=== PATIENT | male | born 1955 | race Hispanic/Latino ===

== ENCOUNTER 2016-10-11 06:51 | Day surgery (SDC) | payer BC ==
[~2016-10-11 06:51] MED LIST: NACL 0.9% 1000 ML 1,000 ML IV SCH
[2016-10-11 07:55] LABS: Basophils % (Auto) 0.5 % (0.0-1.8); Eosinophils % (Auto) 1.8 % (0.0-4.3); Hematocrit 48.5 % (35.5-45.6); Hemoglobin 16.9 gm/dl (11.8-15.2); Mean Corpuscular HGB Conc 35 % (32-34); Mean Corpuscular Hemoglobin 32 pg (28-32); Mean Corpuscular Volume 93 fl (84-94); Platelet Count 168 K/mm3 (140-440); Red Cell Distribution Width 13.3 % (13.2-15.2); White Blood Count 8.5 K/mm3 (4.5-11.0)
--- NOTE | 2016-10-11 08:04 | Cat Scan Report ---
CT OF THE ABDOMEN AND PELVIS WITHOUT CONTRAST HISTORY: Nephrolithiasis, flank pain. TECHNIQUE: Helical CT without contrast. Sagittal and coronal reformatted images. FINDINGS: This exam was done in the prone position for planning for nephrostomy tube placement. A 1.5 cm calcified stone is identified at the right ureteral pelvic junction. There is moderate to severe pyelocaliectasis in the right kidney. There are a few additional tiny, punctate calyceal stones in the inferior right kidney. The remainder of the right ureter is normal course and caliber. A 2.8 x 0.8 cm staghorn calculus is identified in the mid to inferior left renal sinus. There are also 2 calyceal stones at the inferior pole of the left kidney measuring 5 and 7 mm. The left ureter is normal course and caliber. The bladder is empty but grossly unremarkable. Normal prostate. The unenhanced CT appearance of the liver, biliary system, pancreas, spleen, adrenal glands, bowel loops and appendix are within normal limits. No evidence for ascites, acute inflammation or adenopathy. The aorta is normal caliber. There are moderate to severe degenerative changes at L5-S1. The bony structures are within normal limits otherwise. The visualized lung bases are clear. Normal heart size. IMPRESSION: Bilateral nephrolithiasis. 1.5 cm stone at the right ureteropelvic junction with moderate to severe pelvocaliectasis in the right kidney.
[2016-10-11 08:06] LABS: INR 1.03 (0.87-1.13)
[2016-10-11 08:07] LABS: Partial Thromboplastin Time 24.9 Sec. (24.2-36.6)
[2016-10-11] MEDS ORDERED: NACL 0.9% 500 ML IR ONE (08:23)
[2016-10-11] MEDS ORDERED: XYLOCAINE 1%/ EPI 1:100,000 INFILTRATI ONE (08:24)
[2016-10-11] MEDS ORDERED: NACL 0.9% 500 ML 500 ML IV SCH (08:30)
[2016-10-11] MEDS ORDERED: BENADRYL ONE (08:38)
[2016-10-11] MEDS: VANCOMYCIN/NS 1 GM/250 ML 1 GM/250 ML BAG IV NR ×2 (09:15→10:35)
[2016-10-11] MEDS ORDERED: NACL 0.9% 500 ML 500 ML ONE (10:21)
[2016-10-11] MEDS: VERSED ONE ×5 (10:46→11:09)
[2016-10-11] MEDS: SUBLIMAZE ONE ×4 (10:46→11:03)
[2016-10-11] MEDS ORDERED: VERSED ONE (10:58)
--- NOTE | 2016-10-11 11:30 | Short Stay Summary ---
Short Stay Documentation Date of service: 10/11/16 Narrative H&P: 61-year-old male with past medical history of kidney stones who presents with right-sided hydronephrosis referred by 's initials for nephrostomy tube placement, with later conversion to utter pigtail catheter for PCNL. - History Principal diagnosis: Hydronephrosis H&P: obtained from office Past Medical History: other (kidney stones with PCNL) Past Surgical History: Other (PCN and prior PCNL) - Allergies and Medications Current Medications: Allergies ciprofloxacin [From Cipro] Allergy (Intermediate, Verified 09/09/13 09:51) Itching ciprofloxacin HCl [From Cipro] Allergy (Intermediate, Verified 09/09/13 09:51) Itching Penicillins Allergy (Intermediate, Verified 09/09/13 09:23) Hives SEAFOOD Allergy (Mild, Uncoded 09/09/13 09:23) Vomiting Home Medications Medication Instructions Recorded Confirmed Last Taken Type Nitrofurantoin Monohyd/M-Cryst 100 mg PO DAILY 10/11/16 10/11/16 10/10/16 History [Nitrofurantoin Power-Mcr 100 mg] Active Medications Vancomycin HCl (Vancomycin/Ns 1 Gm/250 Ml) 1 gm in 250 mls @ 166.667 mls/hr IV PREOP NR PRN Reason: Protocol Stop: 10/11/16 23:59 Last Admin: 10/11/16 10:35 Dose: 166.667 mls/hr Sodium Chloride (Nacl 0.9% 500 Ml) 500 mls @ 50 mls/hr IV DIRECT ALVARO Last Admin: 10/11/16 08:00 Dose: 50 mls/hr - Physical exam General appearance: no acute distress Lungs: Normal air movement Gastrointestinal: costovertebral (right flank) - Brief post op/procedure progress note Date of procedure: 10/11/16 Pre-op diagnosis: hydronephrosis Post-op diagnosis: same Procedure: right pcn Anesthesia: local Surgeon: LULI CORRAL Estimated blood loss: minimal Condition: stable - Hospital course Hospital course: Will be monitored for 3 hrs. If no issues, can be discharged. - Disposition Condition at discharge: Stable Disposition: DISCHARGED TO HOME OR SELFCARE - Discharge Diagnoses (1) Hydronephrosis Status: Acute Qualifiers: Hydronephrosis type: H (2) Kidney calculi Status: Chronic Short Stay Discharge Plan Activity: advance as tolerated Weight Bearing Status: Weight Bear as Tolerated Diet: regular Wound: keep clean and dry
[2016-10-11 11:42] LABS: BUN/Creatinine Ratio 10.62; Calcium 8.9 mg/dL (8.4-10.2); Chloride 105.7 mmol/L (98-107); Potassium 3.8 mmol/L (3.6-5.0)
[2016-10-11 11:47] LABS: Bilirubin,Urine NEG (Negative); Blood,Urine LG (Negative); Ketones,Urine NEG (Negative); Leukocyte Esterase,Urine SM (Negative); Nitrite,Urine NEG (Negative); Urobilinogen,Urine < 2.0 mg/dL (<2.0)
[2016-10-11 11:51] LABS: RBC,Urine > 182.0 /HPF (0.0-6.0)
--- NOTE | 2016-10-11 11:54 | Operative Report ---
Operative Report Operative Report: EXAM: 1. Ultrasound and fluoroscopic guided access of the lower pole posterior calyx of the right kidney 2. Diagnostic injection of the right kidney through the access needle 3. Nephrostogram of the right kidney 4. Percutaneous nephrostomy tube placement of the right kidney DATE: 10/11/16 WEB SIZER: LULI CORRAL MD INDICATION: 61-year-old male with bilateral renal calculi with right-sided hydronephrosis and flank pain set up for right-sided nephrostomy tube, and subsequent later conversion to nephroureteral tube for PCNL. MEDICATIONS: Please see nursing report for full details. DEVICES: 8 Comoran nephrostomy tube CONTRAST: 15 mL of nonionic contrast PROCEDURE: The risks, benefits, and alternatives were discussed with the patient; written informed consent was obtained. The patient's back was prepped and draped in a sterile fashion. The patient's puncture site was anesthetized with lidocaine. Under direct ultrasound guidance , the right lower pole posterior calyx was accessed with a 20-gauge needle. Urine was aspirated. Contrast was injected demonstrating a right-sided posterior calyx emptying into the hydronephrotic right-sided collecting system. 0.018 inch wire was passed into the collecting system. Needle was exchanged for a 6 [place]an Accu stick system. 6 [place]an Accustick system was advanced over the wire and passed into the collecting system. Wire, inner dilator and cannula were removed. Contrast was injected confirming position within the collecting system. Nephrostogram was performed demonstrating moderate to severe right-sided hydronephrosis with no passage of contrast into the right ureter. There is a large ball like renal calculi. 4 Comoran vertebral catheters then passed through the 6 Comoran transitional dilator and passed into the bladder. 0.035 inch Amplatz wire was advanced through the vertebral catheter into the bladder. Transitional dilator removed. 8 Comoran dilator advanced over the wire and removed. 8 Comoran nephrostomy tube was advanced over the wire. Wire was removed. Ullin loop was performed in the renal pelvis. Contrast was injected into the nephrostomy tube confirming position within the collecting system. Contrast was aspirated. The nephrostomy tube was sutured in place with Ethilon. Sterile dressing applied. Patient tolerated the procedure well. The patient was transferred to the recovery area without issue. FINDINGS: Please see procedure note above. IMPRESSION: 1. Successful nephrostogram of the right kidney demonstrating moderate to severe hydronephrosis with a large ball like renal calculi with no passage of contrast into the ureter. 2. Successful fluoroscopic and sonographic guided percutaneous nephrostomy tube placement in the lower posterior calyx of the right kidney. 3. Urine sent for culture and urinalysis.
[2016-10-11 13:36] VITALS: BP 121/65
== END 2016-10-11 14:10 | disposition home or self-care (01) ==
LOC: OPU 06:51
PROVIDERS: ATTEND Radiology Diagnostic Radiology
DX: N13.2 Hydronephrosis with renal and ureteral calculous obstruction (principal)
CPT/HCPCS: 36415; 50432; 74176; 80048; 81001; 85025; 85610; 85730; 87086; C1729; C1751; C1769; J1200; J2250; J2930; J3010; J3370; J7040; Q9967

== ENCOUNTER 2016-10-28 06:36 | Observation (INO) | payer BC ==
[~2016-10-28 06:36] MED LIST changes: +VANCOMYCIN/NS 1 GM/250 ML 1 GM/250 ML BAG IV NR
[2016-10-28] MEDS ORDERED: XYLOCAINE MPF 2% ONE (07:02)
[2016-10-28] MEDS ORDERED: DIPRIVAN 10 MG/ML IV ONE (07:02)
[2016-10-28] MEDS ORDERED: SUBLIMAZE ONE ×2 (07:02→08:23)
--- NOTE | 2016-10-28 08:00 | Anesthesia Consultation ---
Anesthesia Consult and Med Hx Date of service: 10/28/16 - Airway Anesthetic Teeth Evaluation: Good ROM Head & Neck: Adequate Mental/Hyoid Distance: Adequate Mallampati Class: Class III Intubation Access Assessment: Possibly Difficult - Pre-Operative Health Status ASA Pre-Surgery Classification: ASA3 - Pulmonary Hx Smoking: Yes (1 PACK PER 2 WEEKS) Hx Respiratory Symptoms: No SOB: No (denies) Hx Pneumonia: Yes Hx Sleep Apnea: No (HARISH PRE SCREEN HIGH RISK) - Cardiovascular System Hx Hypertension: Yes (OFF MEDS X 2 YRS) Hx Coronary Artery Disease: No (patient says "blood clot to heart and lungs" 15 yrs ago; no problems since) Hx Heart Attack/AMI: No (left bundle branch block on ECG) Hx Angina: No (denies) Hx Cardia Arrhythmia: No Hx Peripheral Vascular Disease: Yes (DVT with PE in 2001) - Central Nervous System Hx Neuromuscular Disorder: No Hx Seizures: No CVA: No Hx Back Pain: No Hx Psychiatric Problems: Yes (Depression/anxiety) - Gastrointestinal Hx Gastroesophageal Reflux Disease: Yes - Endocrine Hx Renal Disease: Yes (Kidney Stones; last visit 11/15/13) Hx Insulin Dependent Diabetes: No Hx Non-Insulin Dependent Diabetes: No Hx Thyroid Disease: No - Other Systems Hx Alcohol Use: Yes (2-3 BEERS PER DAY) Hx Substance Use: No Hx Cancer: No Hx Obesity: No
--- NOTE | 2016-10-28 08:10 | Anesthesia Day of Surgery ---
Anesthesia Day of Surgery - Day of Surgery Patient Examined: Yes Patient H&P Reviewed: Yes Patient is NPO: Yes
[2016-10-28] MEDS ORDERED: PEPCID IV NR (08:11)
[2016-10-28] MEDS ORDERED: NACL 0.9% 500 ML IR ONE (08:22)
[2016-10-28] MEDS ORDERED: VERSED ONE (08:22)
[2016-10-28] MEDS ORDERED: XYLOCAINE 1%/ EPI 1:100,000 INFILTRATI ONE (08:23)
[2016-10-28] MEDS ORDERED: VANCOMYCIN/NS 1 GM/250 ML 1 GM/250 ML BAG IV ONE (08:23)
[2016-10-28] MEDS ORDERED: ANCEF/STERILE WATER 2 GM/20 ML 2 GM/20 ML SYRINGE IV NR ×2 (09:00)
[2016-10-28] MEDS ORDERED: ZEMURON IV ONE (09:03)
[2016-10-28] MEDS ORDERED: DECADRON ONE (09:06)
[2016-10-28] MEDS ORDERED: ZOFRAN ONE ×3 (09:07→10:46)
[2016-10-28] MEDS ORDERED: DILAUDID ONE (09:31)
--- NOTE | 2016-10-28 09:32 | Operative Report ---
Operative Report Operative Report: EXAM: FLUOROSCOPIC GUIDED NEPHROSTOGRAM, EXCHANGE OF NEPHROSTOMY TUBE TO NEPHROURETERAL STENT CLINICAL INDICATION: PATIENT WITH HYDRONEPHROSIS AND OBSTRUCTING STONE DATE: 10/28/2016 PROCEDURE: Following an explanation of the risks, benefits and alternatives; written informed consent was obtained. The patient was brought to the injury graphic suite and placed in prone position on the examination table. His right back and indwelling ostomy tube were prepped and draped in the usual sterile fashion. 1% lidocaine was used for anesthesia. Contrast was injected through the indwelling nephrostomy tube which demonstrated minimal to moderate hydronephrosis. The obstructing renal stone is easily identifiable. The suture was cut. The catheter was cut and a 0.035 guidewire advanced through the catheter to the proximal ureter. The remaining catheter was then removed intact. A 4 Panamanian vertebral catheter was then advanced over the guidewire and together the guidewire and catheter were advanced to the bladder. The vertebral catheter was removed. A 5 Panamanian pigtail catheter was then placed over the guidewire and advanced to the bladder. The guidewire was removed. Contrast was injected through the pigtail catheter to document appropriate positioning within the bladder a. The catheter was securely fasten the skin surface using 2-0 Ethilon suture and a sterile dressing applied. The patient tolerated the procedure well. There were no immediate post procedure complications. Conscious sedation was performed under the guidance of radiologic nursing. Continuous cardiopulmonary monitoring was utilized. IMPRESSION: 1) Fluoroscopic guided nephrostogram demonstrating minimal to moderate hydronephrosis and an obstructing renal pelvic stone. 2) Fluoroscopic guided exchange of nephrostomy tube to a nephroureteral stent.
[2016-10-28] MEDS ORDERED: MINERAL OIL TOPICAL LIGHT TP ONE ×2 (09:48→10:00)
[2016-10-28] MEDS ORDERED: NACL 0.9% IR ONE (10:00)
[2016-10-28] MEDS ORDERED: ePHEDrine SULFATE ONE (10:27)
[2016-10-28] MEDS ORDERED: NEOSTIGMINE ONE (11:17)
[2016-10-28] MEDS ORDERED: ROBINUL ONE ×2 (11:17→11:33)
[2016-10-28] MEDS ORDERED: NACL 0.9% 500 ML 500 ML IV ONE (11:24)
[2016-10-28] MEDS ORDERED: LASIX ONE (11:24)
[2016-10-28] MEDS ORDERED: NORCO 5/325 PO PRN (12:37)
[2016-10-28] MEDS ORDERED: MORPHINE IV PRN (12:37)
[2016-10-28] MEDS ORDERED: TYLENOL PO PRN (12:37)
[2016-10-28] MEDS ORDERED: ZOFRAN IV PRN (12:37)
--- NOTE | 2016-10-28 12:37 | Post Operative Note ---
Date of procedure: 10/28/16 Pre-op diagnosis: r renal stone Post-op diagnosis: same Findings: huge stone Procedure: r perc nephrolithotomy Anesthesia: GETA Surgeon: MIKIE QUINONEZ Estimated blood loss: 50-100ml Pathology: list (stones) Specimen disposition: given to patient/family Condition: stable Disposition: PACU
[2016-10-28] MEDS ORDERED: D5W/0.45% NACL/KCL 20 MEQ 20 MEQ/1,000 ML BAG IV SCH (13:00)
--- NOTE | 2016-10-28 13:24 | Operative Report ---
PREOPERATIVE DIAGNOSIS: Very large 2.5 to 3 cm right renal stone. POSTOPERATIVE DIAGNOSES: Very large 2.5 to 3 cm right renal stone. PROCEDURE: Right percutaneous nephrolithotomy, lithotripsy with and LithoClast and ultrasonic lithotripsy, insertion of nephrostomy tube. SURGEON: Cash Alegria M.D. ANESTHESIA: General. FINDINGS: This is a gentleman with a very large right renal stone, now presents for treatment. All risks and complications were discussed. DESCRIPTION OF PROCEDURE: The patient was brought to the operating room and placed on the operating table. Following induction of anesthesia, placed in lithotomy position, prepped and draped in usual sterile fashion. The nephroureteral stent was accessed and an Amplatz wire coiled in the bladder. An incision was made along the wire and this was dilated with a hemostat. We placed the snake and a safety wire coiled in the bladder and was secured with silk. We could not get a 14-Montenegrin Amplatz over the snake, it was too tight at the level of fascia. We then used a 12 and gradually dilated to 18-Montenegrin. We then used a 30 cm balloon, but it was too tight to get the sheath over the balloon. We took the balloon out and used a bigger Amplatz to 30-Montenegrin and then placed a 28 sheath. Flexible nephroscopy revealed the stone. A rigid scope was placed and using the LithoClast and ultrasonic device, this was broken into many pieces, which were extracted. These were given to the family. The patient tolerated the procedure well. No significant complications. A 22 Councill catheter was placed. There was no extravasation, but the dye did not go freely even though there was a wire into renal pelvis, likely because of the edema from the stone that has been there for quite some time. The patient tolerated the procedure well and brought to recovery room with the wire in the bladder, a Villavicencio catheter and a nephrostomy tube. Minimal blood loss in stable condition. JOB# [id number] RITCHIE/JOSEFINA
[2016-10-28 13:57] LABS: Basophils % (Auto) 0.5 % (0.0-1.8); Eosinophils % (Auto) 0.8 % (0.0-4.3); Hematocrit 48.9 % (35.5-45.6); Hemoglobin 16.7 gm/dl (11.8-15.2); Mean Corpuscular HGB Conc 34 % (32-34); Mean Corpuscular Hemoglobin 32 pg (28-32); Mean Corpuscular Volume 94 fl (84-94); Platelet Count 134 K/mm3 (140-440); Red Blood Count 5.22 M/mm3 (3.65-5.03); Red Cell Distribution Width 13.7 % (13.2-15.2); White Blood Count 7.4 K/mm3 (4.5-11.0)
[2016-10-28] MEDS ORDERED: NACL 0.9% 1000 ML 1,000 ML ONE (14:05)
[2016-10-28 14:10] LABS: Anion Gap 15 mmol/L; Blood Urea Nitrogen 9 mg/dL (9-20); Calcium 8.2 mg/dL (8.4-10.2); Carbon Dioxide 26 mmol/L (22-30); Chloride 105.6 mmol/L (98-107); Glucose 127 mg/dL (75-100); Potassium 4.8 mmol/L (3.6-5.0); Sodium 142 mmol/L (137-145)
--- NOTE | 2016-10-28 14:11 | Admit Criteria Form ---
Admission Criteria Documentation: RENAL COLIC AND KIDNEY STONES Clinical Indications for Admission to Inpatient Care ( Place 'X' for any and all applicable criteria): Admission is indicated for ANY ONE of the following (1)(2)(3)(4): [X]I. Inpatient admission required rather than observation care (Also use Renal Colic and Kidney Stones: Observation Care Criteria as appropriate) because of ANY ONE of the following: [ ]a) Severe pain requiring acute inpatient management [ ]b) Urinary tract infection identified [ ]c) Vomiting that is severe or persistent [ ]d) IV fluid required rather than oral rehydration to replace significant ongoing (eg, for greater than 24 hours) losses (greater than 200 mL/hr or 3 L/m2 per day) [X]e) Percutaneous or open drainage (eg, abscess, biliary tract) procedures [ ]f) Other condition, treatment or monitoring requiring inpatient admission [ ]II. Impending acute renal failure [ ]III. Bilateral obstruction [ ]IV. Single kidney with obstruction [ ]V. Transplanted kidney with obstruction [ ]. Possible open surgical procedure needed (eg, pyonephrosis, stone removal not amendable to other means) [ ]VII. Hemodynamic instability Extended stay beyond goal length of stay may be needed for(2)(3)(31): [ ]a) Failed initial stone removal (32) [ ]b) Pyonephrosis [ ]c) Obstructive uropathy with urinary tract infection [ ]d) Procedure complications [ ]e) Comorbidities (22) The original [employer] [facility] [facility] content created by [employer] has been revised. The portions of the content which have been revised are identified through the use of italic text or in bold, and [id number] has neither reviewed nor approved the modified material. All other unmodified content is copyright [employer]. Please see references footnoted in the original [employer] [facility] edition 2016 Admission Criteria Met: Yes
--- NOTE | 2016-10-28 15:26 | Fluoroscopy Report ---
Findings: History of calculus of right kidney is given. 10 fluoroscopic images were captured. Tool Grinding Technician film of the abdomen demonstrates a rather large stone in the expected position of the right renal pelvis. Subsequent images demonstrate removal of the stone. Balloon dilatation was also performed on the right side. Please correlate with the procedural report by Dr. Alegria.
--- NOTE | 2016-10-28 15:26 | Fluoroscopy Report ---
Findings: History of calculus of right kidney is given. 10 fluoroscopic images were captured. Shake Maker film of the abdomen demonstrates a rather large stone in the expected position of the right renal pelvis. Subsequent images demonstrate removal of the stone. Balloon dilatation was also performed on the right side. Please correlate with the procedural report by Dr. Alegria.
--- NOTE | 2016-10-28 16:47 | Progress Note ---
Assessment and Plan labs noted home in am Subjective Date of service: 10/28/16 Principal diagnosis: stones Objective - Constitutional Vitals: Vital Signs - 12hr 10/28/16 10/28/16 10/28/16 07:06 07:36 07:52 Temperature 97.9 F 97.9 F Pulse Rate Pulse Rate [ 62 62 62 From Monitor] Respiratory 16 16 Rate Blood Pressure Blood Pressure 112/71 112/71 [Left Arm] O2 Sat by Pulse 97 97 Oximetry 10/28/16 10/28/16 10/28/16 07:54 11:51 11:55 Temperature 95.5 F L Pulse Rate 72 60 Pulse Rate [ From Monitor] Respiratory 16 14 14 Rate Blood Pressure 130/52 133/45 Blood Pressure [Left Arm] O2 Sat by Pulse 97 99 100 Oximetry 10/28/16 10/28/16 10/28/16 12:00 12:05 12:20 Temperature 96.2 F L Pulse Rate 55 L 55 L 70 Pulse Rate [ From Monitor] Respiratory 15 15 16 Rate Blood Pressure 129/69 131/66 122/60 Blood Pressure [Left Arm] O2 Sat by Pulse 100 100 100 Oximetry 10/28/16 10/28/16 10/28/16 12:35 12:50 13:05 Temperature 96.9 F L 96.7 F L 97.0 F L Pulse Rate 59 L 59 L 59 L Pulse Rate [ From Monitor] Respiratory 15 14 15 Rate Blood Pressure 128/58 118/62 122/60 Blood Pressure [Left Arm] O2 Sat by Pulse 99 97 96 Oximetry 10/28/16 10/28/16 10/28/16 13:20 13:35 13:50 Temperature 97.2 F L 97.9 F 98.5 F Pulse Rate 58 L 61 69 Pulse Rate [ From Monitor] Respiratory 14 15 16 Rate Blood Pressure 122/70 132/75 124/73 Blood Pressure [Left Arm] O2 Sat by Pulse 95 95 94 Oximetry 10/28/16 15:06 Temperature 98.8 F Pulse Rate Pulse Rate [ 56 L From Monitor] Respiratory 18 Rate Blood Pressure Blood Pressure 128/68 [Left Arm] O2 Sat by Pulse 97 Oximetry General appearance: Present: no acute distress - Labs CBC & Chem 7: 10/28/16 13:20 10/28/16 13:20 Labs: Abnormal lab results 10/28/16 10/28/16 10/28/16 Range/Units 07:09 13:20 13:20 RBC 5.22 H (3.65-5.03) M/mm3 Hgb 16.7 H (11.8-15.2) gm/dl Hct 48.9 H (35.5-45.6) % Plt Count 134 L (140-440) K/mm3 Lymph % (Auto) 9.7 L (13.4-35.0) % Lymph # 0.7 L (1.2-5.4) K/mm3 Seg Neutrophils % 86.8 H (40.0-70.0) % Glucose 127 H (75-100) mg/dL Calcium 8.2 L (8.4-10.2) mg/dL Crossmatch See Detail
[2016-10-28] MEDS ORDERED: VANCOMYCIN/NS 1 GM/250 ML 1 GM/250 ML BAG IV SCH (20:00)
[2016-10-28] MEDS ORDERED: PEPCID IV SCH (22:00)
[2016-10-29 07:48] VITALS: BP 130/78
--- NOTE | 2016-10-29 09:02 | Short Stay Summary ---
Short Stay Documentation Date of service: 10/29/16 - History H&P: obtained from office - Allergies and Medications Current Medications: Allergies ciprofloxacin [From Cipro] Allergy (Intermediate, Verified 09/09/13 09:51) Itching ciprofloxacin HCl [From Cipro] Allergy (Intermediate, Verified 09/09/13 09:51) Itching Penicillins Allergy (Intermediate, Verified 09/09/13 09:23) Hives SEAFOOD Allergy (Mild, Uncoded 09/09/13 09:23) Vomiting Home Medications Medication Instructions Recorded Confirmed Last Taken Type Nitrofurantoin Monohyd/M-Cryst 100 mg PO DAILY 10/11/16 10/28/16 10/27/16 History [Nitrofurantoin [place]-Mcr 100 mg] Aspirin [Adult Low Dose Aspirin EC] 81 mg PO DAILY 10/15/16 10/28/16 10/07/16 History Active Medications Acetaminophen (Tylenol) 650 mg PO Q4H PRN PRN Reason: Pain MILD(1-3)/Fever >100.5/ARANA Acetaminophen/Hydrocodone Bitart ([place] 5/325) 2 each PO Q6H PRN PRN Reason: Pain, Moderate (4-6) Famotidine (Pepcid) 20 mg IV BID [facility] Last Admin: 10/28/16 21:27 Dose: 20 mg Sodium Chloride (Nacl 0.9% 1000 Ml) 1,000 mls @ 42 mls/hr IV DIRECT ALVARO Last Admin: 10/28/16 07:30 Dose: 42 mls/hr Potassium Chloride/Dextrose/Sod Cl (D5w/0.45% Nacl/Kcl 20 Meq) 20 meq in 1,000 mls @ 125 mls/hr IV DIRECT ALVARO Last Admin: 10/28/16 21:20 Dose: 125 mls/hr Morphine Sulfate (Morphine) 2 mg IV Q4H PRN PRN Reason: Pain, Moderate (4-6) Ondansetron HCl (Zofran) 4 mg IV Q8H PRN PRN Reason: N/V unrelieved by Reglan - Brief post op/procedure progress note Date of procedure: 10/28/16 Pre-op diagnosis: kidney stone Post-op diagnosis: same Procedure: perc nephrolithomy Surgeon: MIKIE QUINONEZ Estimated blood loss: minimal Condition: stable - Hospital course Hospital course: wire & gruber removed home with perc tube - norco & cipro - Disposition Condition at discharge: Stable Disposition: DISCHARGED TO HOME OR SELFCARE Short Stay Discharge Plan Follow up with: PRIMARY CARE, [Primary Care Provider] - 7 Days
== END 2016-10-29 11:00 | disposition home or self-care (01) ==
LOC: OPU 06:36 → 2B-SURG 12:37
PROVIDERS: ADMIT Urology; ATTEND Urology
DX: N20.0 Calculus of kidney (principal)
CPT/HCPCS: 36415; 50081; 50431; 50434; 74485; 80048; 85025; 86850; 86900; 86901; 86920; 93005; 93010; 96365; 96366; 96375; 96376; A4217; C1726; C1751; C1769; G0378; J1100; J1170; J1940; J2250; J2405; J2704; J2710; J3010; J3370; J7030; Q9967; 96374

== ENCOUNTER 2017-06-26 06:34 | Day surgery (SDC) | payer BC ==
[2017-06-26 07:26] LABS: Basophils % (Auto) 0.7 % (0.0-1.8); Eosinophils % (Auto) 2.4 % (0.0-4.3); Hematocrit 49.1 % (35.5-45.6); Hemoglobin 17.3 gm/dl (11.8-15.2); Mean Corpuscular HGB Conc 35 % (32-34); Mean Corpuscular Hemoglobin 33 pg (28-32); Mean Corpuscular Volume 94 fl (84-94); Platelet Count 140 K/mm3 (140-440); Red Blood Count 5.21 M/mm3 (3.65-5.03); Red Cell Distribution Width 13.4 % (13.2-15.2); White Blood Count 6.6 K/mm3 (4.5-11.0)
[2017-06-26 07:36] LABS: Anion Gap 16 mmol/L; BUN/Creatinine Ratio 13; Blood Urea Nitrogen 13 mg/dL (9-20); Calcium 8.5 mg/dL (8.4-10.2); Carbon Dioxide 24 mmol/L (22-30); Chloride 103.5 mmol/L (98-107); Glucose 120 mg/dL (75-100); Potassium 3.5 mmol/L (3.6-5.0); Sodium 140 mmol/L (137-145)
[2017-06-26 07:37] LABS: INR 0.96 (0.87-1.13)
[2017-06-26 07:38] LABS: Partial Thromboplastin Time 24.7 Sec. (24.2-36.6)
--- NOTE | 2017-06-26 08:03 | Cat Scan Report ---
CT ABDOMEN PELVIS WITHOUT CONTRAST: HISTORY: Renal stones, flank pain. COMPARISON: 10/11/16. TECHNIQUE: Helical CT in 1.25mm intervals without IV contrast. Sagittal and coronal reconstructions. FINDINGS: Lung bases: Adequately aerated. No infiltrate, mass or effusion. Liver: Normal. Biliary system: Normal. Pancreas: Normal. Spleen: Normal. Kidneys/ureters/bladder: The right kidney and collecting system are within normal limits. The obstructing stone near the right ureteropelvic junction has been removed since 10/11/16. No right ureteral stones or hydronephrosis. There are 3 moderate to large stones in the left kidney which are essentially unchanged. The largest stone resides at mid pole measuring 4.1 x 1.5 cm in axial plane. There are 2 stones at the inferior pole of the left kidney measuring 9 mm and 10 mm. There is no evidence for ureteral stones or hydronephrosis. The bladder is empty and grossly normal. The prostate gland is normal size. Adrenal glands: Normal. Aorta: Normal. Intestines: Normal. Appendix: Normal. Ascites: None. Adenopathy: None. Musculoskeletal: Mild degenerative changes in the visualized thoracolumbar spine. No fracture or suspicious bony lesion. IMPRESSION: Left nephrolithiasis as outlined above.
[2017-06-26] MEDS ORDERED: VERSED ONE (08:07)
[2017-06-26] MEDS ORDERED: NACL 0.9% 500 ML IR ONE (08:07)
[2017-06-26] MEDS ORDERED: ANCEF/STERILE WATER 2 GM/20 ML 0 GM/0 ML SYRINGE IV ONE (08:08)
[2017-06-26] MEDS ORDERED: LEVAQUIN 500MG/100ML 500 MG/100 ML BAG IV ONE (08:21)
[2017-06-26] MEDS: SUBLIMAZE ONE ×2 (09:16→09:23)
[2017-06-26] MEDS: XYLOCAINE 2% INFILTRATI ONE ×2 (09:18→09:31)
[2017-06-26] MEDS ORDERED: SUBLIMAZE ONE (09:26)
--- NOTE | 2017-06-26 10:04 | Short Stay Summary ---
Short Stay Documentation Date of service: 06/26/17 Narrative H&P: 52-year-old male who presents with kidney stones, status post multiple percutaneous nephrolithotomies, who presents for left-sided kidney stone access. - History Principal diagnosis: kidney stones Past Medical History: other (kidney stones) Past Surgical History: Other (kidney stone procedures) - Allergies and Medications Current Medications: Allergies ciprofloxacin [From Cipro] Allergy (Intermediate, Verified 09/09/13 09:51) Itching ciprofloxacin HCl [From Cipro] Allergy (Intermediate, Verified 09/09/13 09:51) Itching Penicillins Allergy (Intermediate, Verified 09/09/13 09:23) Hives SEAFOOD Allergy (Mild, Uncoded 09/09/13 09:23) Vomiting Home Medications Medication Instructions Recorded Confirmed Last Taken Type Aspirin [Adult Low Dose Aspirin EC] 81 mg PO DAILY 10/15/16 06/26/17 1 Month Ago History ~05/27/17 Hydrochlorothiazide [HCTZ] 25 mg PO DAILY 06/26/17 06/26/17 06/25/17 History Levofloxacin [Levaquin TAB] 750 mg PO QDAY 7 Days #7 tablet 06/26/17 Unknown Rx Potassium Citrate [Potassium 15 meq PO DAILY 06/26/17 06/26/17 06/25/17 History Citrate ER] Active Medications Sodium Chloride (Nacl 0.9% 1000 Ml) 1,000 mls @ 42 mls/hr IV DIRECT ALVARO Last Admin: 06/26/17 08:24 Dose: 42 mls/hr Vancomycin HCl (Vancomycin/Ns 1 Gm/250 Ml) 1 gm in 250 mls @ 166.667 mls/hr IV PREOP NR PRN Reason: Protocol Stop: 06/26/17 23:59 Last Admin: 06/26/17 09:15 Dose: 250 mls - Physical exam General appearance: no acute distress Lungs: Normal air movement - Brief post op/procedure progress note Date of procedure: 06/26/17 Pre-op diagnosis: Renal stones Post-op diagnosis: same Procedure: Left-sided nephroureteral tube placement Anesthesia: local (w/ conscious sedation) Surgeon: LULI CORRAL Estimated blood loss: minimal Condition: stable - Hospital course Hospital course: Tolerated procedure well. No issues. - Disposition Condition at discharge: Stable Disposition: DC-01 TO HOME OR SELFCARE Short Stay Discharge Plan Activity: advance as tolerated Weight Bearing Status: Weight Bear as Tolerated Diet: advance as tolerated Wound: keep clean and dry (do not get wet. Keep dry until surgery on FRI. Take antibiotics daily to prevent infection.) Follow up with: MIKIE QUINONEZ MD [Primary Care Provider] - 7 Days Prescriptions: Levofloxacin [Levaquin TAB] 750 mg PO QDAY 7 Days #7 tablet
--- NOTE | 2017-06-26 10:19 | Operative Report ---
Operative Report Operative Report: EXAM: 1. Ultrasound and fluoroscopic guided access of the lower posterior calyx of the left kidney 2. Nephrostogram of the left kidney 3. Fluoroscopic guided percutaneous nephroureteral tube placement in the left kidney DATE: 06/26/17 CAKE PRESS OPERATOR HELPER: LULI CORRAL MD INDICATION: Large left-sided renal stone requiring access for percutaneous nephrolithotomy MEDICATIONS: Please see nursing report for full details. DEVICES: 5 Greenlandic pigtail catheter CONTRAST: Please see crime lab analyst report for full details. PROCEDURE: The risks, benefits, and alternatives were discussed with the patient; written informed consent was obtained. The patient's back was prepped and draped in a sterile fashion. The patient's puncture site was anesthetized with lidocaine. Ultrasound was used to evaluate the left kidney, and the left collecting system was decompressed preventing ultrasound guided access. Fluoroscopically, I evaluated the left kidney and under direct fluoroscopic guidance, I accessed the calculi in the left posterior lower calyx. 0.018 inch wire was passed into the collecting system and into the bladder. Needle was exchanged for a 6 Green[place]ic Accu stick system. 6 Green[place]ic Accustick system was advanced over the wire and passed into the collecting system. Inner dilator and cannula were removed. Pullback nephrostogram was performed with the use of a Mario Julia. Nephrostogram was performed demonstrating a large central left kidney stone with extension into the left posterior calyx with a second kidney stone in a lower pole anterior calyx. There is minimal hydronephrosis of the kidney. The left ureter was patent. 0.035 inch Amplatz wire was advanced through the transitional dilator of the AccuStick system and the dilator was removed. 5 Greenlandic pigtail nephroureteral tube was advanced over the wire. Wire was removed. The pigtail spanned from the left posterior calyx, through the collecting system and into the bladder. The nephroureteral tube was sutured in place with Ethilon. Sterile dressing applied. Patient tolerated the procedure well. The patient was transferred to the floor in stable condition. FINDINGS: Please see procedure note above. IMPRESSION: 1. Successful nephrostogram of the left kidney demonstrating a a large central left kidney stone with extension into the left posterior calyx with a second kidney stone in a lower pole anterior calyx. There is minimal hydronephrosis of the kidney. 2. Percutaneous nephroureteral tube placement in the lower posterior calyx of the left kidney. PLAN: I contacted the patient's urologist and we will place the patient on oral antibiotics until his scheduled procedure early this upcoming week.
[2017-06-26 12:43] VITALS: BP 137/78
== END 2017-06-26 14:10 | disposition home or self-care (01) ==
LOC: CATHLABREC 06:34
PROVIDERS: ATTEND Radiology Diagnostic Radiology
DX: N20.0 Calculus of kidney (principal); N13.39 Other hydronephrosis; Z88.1 Allergy status to other antibiotic agents; Z88.0 Allergy status to penicillin; Z91.013 Allergy to seafood; Z79.82 Long term (current) use of aspirin; Z79.01 Long term (current) use of anticoagulants
CPT/HCPCS: 36415; 50433; 74176; 80048; 85025; 85610; 85730; 96365; 99156; 99157; C1751; C1769; J1956; J2250; J3010; J3370; J7030; J0690; Q9967

== ENCOUNTER 2017-06-28 08:04 | Emergency (ER) | payer BC ==
[2017-06-28 09:20] LABS: Basophils % (Auto) 0.4 % (0.0-1.8); Eosinophils % (Auto) 1.6 % (0.0-4.3); Hematocrit 50.3 % (35.5-45.6); Hemoglobin 17.4 gm/dl (11.8-15.2); Mean Corpuscular HGB Conc 35 % (32-34); Mean Corpuscular Hemoglobin 33 pg (28-32); Mean Corpuscular Volume 96 fl (84-94); Platelet Count 130 K/mm3 (140-440); Red Blood Count 5.26 M/mm3 (3.65-5.03); Red Cell Distribution Width 13.7 % (13.2-15.2); White Blood Count 8.7 K/mm3 (4.5-11.0)
[2017-06-28 09:32] LABS: INR 0.99 (0.87-1.13); Partial Thromboplastin Time 24.4 Sec. (24.2-36.6)
[2017-06-28 09:34] LABS: BUN/Creatinine Ratio 23; Blood Urea Nitrogen 18 mg/dL (9-20); Calcium 8.6 mg/dL (8.4-10.2); Carbon Dioxide 23 mmol/L (22-30); Chloride 103.2 mmol/L (98-107); Glucose 105 mg/dL (75-100); Sodium 140 mmol/L (137-145)
[2017-06-28 10:07] LABS: Bilirubin,Urine NEG (Negative); Blood,Urine LG (Negative); Ketones,Urine 20 mg/dL (Negative); Leukocyte Esterase,Urine LG (Negative); Nitrite,Urine NEG (Negative); Urobilinogen,Urine < 2.0 mg/dL (<2.0)
[2017-06-28 10:22] LABS: Anion Gap 19 mmol/L; Potassium 4.2 mmol/L (3.6-5.0)
[2017-06-28] MEDS ORDERED: NACL 0.9% 500 ML IR ONE (10:50)
[2017-06-28] MEDS ORDERED: XYLOCAINE 2% INFILTRATI ONE (10:51)
[2017-06-28] MEDS ORDERED: NACL 0.9% 250ML 250 ML ONE (10:54)
[2017-06-28] MEDS ORDERED: LEVAQUIN 500MG/100ML 500 MG/100 ML BAG IV ONE (11:07)
[2017-06-28] MEDS: VERSED ONE ×2 (11:21→11:24)
[2017-06-28] MEDS: SUBLIMAZE ONE ×2 (11:21→11:24)
--- NOTE | 2017-06-28 11:42 | Consultation ---
History of Present Illness - Reason for Consult Consult date: 06/28/17 Nephroureteral tube leaking - History of Present Illness 62 year old man with extensive renal stone disease with prior PCNL on the right and left who presented for PCNL access for the left side. Nephroureteral catheter was placed on in anticipation for surgery on Friday. Patient was intolerant of catheter complaining of extensive bladder spasms and then developed some leakage from the left nephroureteral tube. Past History Past Medical History: GERD, hypertension, other (renal stone disease) Past Surgical History: Other (PCNL) Social history: smoking. denies: IV drug use Family history: no significant family history Medications and Allergies Allergies Allergy/AdvReac Type Severity Reaction Status Date / Time ciprofloxacin [From Cipro] Allergy Intermediate Itching Verified 09/09/13 09:51 ciprofloxacin HCl Allergy Intermediate Itching Verified 09/09/13 09:51 [From Cipro] Penicillins Allergy Intermediate Hives Verified 09/09/13 09:23 SEAFOOD Allergy Mild Vomiting Uncoded 09/09/13 09:23 Home Medications Medication Instructions Recorded Confirmed Last Taken Type Aspirin [Adult Low Dose Aspirin EC] 81 mg PO DAILY 10/15/16 06/26/17 1 Month Ago History ~05/27/17 Hydrochlorothiazide [HCTZ] 25 mg PO DAILY 06/26/17 06/26/17 06/25/17 History Levofloxacin [Levaquin TAB] 750 mg PO QDAY 7 Days #7 tablet 06/26/17 Unknown Rx Potassium Citrate [Potassium 15 meq PO DAILY 06/26/17 06/26/17 06/25/17 History Citrate ER] Review of Systems All systems: negative (see HPI) Constitutional: no fever Exam - Constitutional Vitals: Temp Pulse Resp BP Pulse Ox 98.4 F 64 15 148/88 98 06/28/17 08:35 06/28/17 10:30 06/28/17 10:30 06/28/17 10:30 06/28/17 10:30 General appearance: Present: no acute distress - EENT Eyes: Present: EOM intact ENT: hearing intact - Respiratory Respiratory effort: normal - Abdominal General gastrointestinal: Present: soft, non-tender, other (leaking from left nephroureteral tube) - Psychiatric Psychiatric: appropriate mood/affect, cooperative Results - Labs CBC & Chem 7: 06/28/17 09:05 06/28/17 09:09 Labs: Abnormal lab results 06/28/17 06/28/17 Range/Units 09:05 09:09 RBC 5.26 H (3.65-5.03) M/mm3 Hgb 17.4 H (11.8-15.2) gm/dl Hct 50.3 H (35.5-45.6) % MCV 96 H (84-94) fl MCH 33 H (28-32) pg MCHC 35 H (32-34) % Plt Count 130 L (140-440) K/mm3 [place] % (Auto) 8.5 H (0.0-7.3) % Seg Neutrophils % 70.1 H (40.0-70.0) % Glucose 105 H (75-100) mg/dL Assessment and Plan 62 year old man with extensive renal stone disease with prior PCNL on the right and left who presented for PCNL access for the left side. Nephroureteral catheter was placed on in anticipation for surgery on Friday. Patient was intolerant of catheter complaining of extensive bladder spasms and then developed some leakage from the left nephroureteral tube. Patient will have nephroureteral tube converted to nephrostomy tube. Continue Levaquin antibiotics. No signs of infection. He will now need nephrostomy tube converted to nephroureteral tube the day of his surgical procedure on Friday.
--- NOTE | 2017-06-28 11:51 | Operative Report ---
Operative Report Operative Report: EXAM: 1. Cystography through the indwelling nephroureteral tube 2. Pullback nephrostogram 3. Conversion of the nephroureteral tube to an 8 Fr nephrostomy catheter DATE: 06/28/17 PROCESSING TECHNOLOGIST: LULI CORRAL MD INDICATION: Leaking left-sided nephroureteral tube and intractable bladder spasms requiring conversion to nephrostomy tube. Patient will require conversion of his nephrostomy tube back to a nephroureteral tube the day of his planned PCNL. MEDICATIONS: Please see nursing report for full details. DEVICES: 8 Citizen Of [place] nephrostomy tube CONTRAST: Please see lab head report for details PROCEDURE: The risks, benefits, and alternatives were discussed with the patient; written informed consent was obtained. The patient was brought to the angiography suite in satisfactory condition. The patient was placed in a prone position. The left tubes was prepped and draped in a sterile fashion. The left-sided nephroureteral tube was evaluated and determined to be intact. The tract demonstrated no evidence of superficial tract infection. 1% lidocaine was injected around the nephroureteral tube for local anesthetic. Contrast was injected through the existing nephroureteral tube confirming position in the bladder. The bladder was distended and demonstrated no obvious defects. The nephroureteral tube was removed over a 0.035 inch Amplatz wire which was coiled in the bladder. 6 Citizen [place] sheath was advanced over the wire and a pullback nephrostogram was performed demonstrating mild left-sided hydronephrosis with a large amount of stone disease present in the left kidney. The renal pelvis was distended. Sheath was removed. An 8 Fr nephrostomy tube was advanced over the wire into the collecting system. The wire and plastic stiffener were removed under fluoroscopic guidance. Collins loop was formed in the renal pelvis. Contrast was injected confirming position in the renal pelvis. Contrast was then aspirated and saline was injected and aspirated through the collecting system. The catheter was secured with multiple 2-0 Ethilon. Sterile dressing was applied. The catheter was connected to a drainage bag. The patient tolerated the procedure without issue. The patient was transferred to the ER without issue. FINDINGS: Please see procedure note above. IMPRESSION: Successful conversion of the left-sided nephroureteral tube to an 8 Citizen [place] nephrostomy tube.
--- NOTE | 2017-06-28 11:52 | Event Note ---
Date: 06/28/17 Patient tolerated procedure well. Patient currently has oral antibiotics. Patient will return on Friday this upcoming week for nephrostomy conversion to a nephroureteral catheter for planned left-sided PCNL with Dr. Alegria
--- NOTE | 2017-06-28 12:30 | Emergency Department Report ---
ED General Adult HPI - General Chief complaint: Laceration/Recheck/Suture Stated complaint: REPLACE KIDNEY TUBE Time Seen by Provider: 06/28/17 08:43 Source: patient Mode of arrival: Ambulatory Limitations: No Limitations - History of Present Illness Initial comments: The patient has a small caliber nephrostomy tube which extends into his bladder. He was concerned because his back started leaking a substantial amount of a urine today. He called Dr. Padgett. He states that he has previously "become septic" when he had another nephrostomy tube. Therefore he is quite concerned. He's had no fever or chills. He does not complain of any dysuria. Severity scale (0 -10): 0 - Related Data Home Medications Medication Instructions Recorded Confirmed Last Taken Aspirin [Adult Low Dose Aspirin EC] 81 mg PO DAILY 10/15/16 06/26/17 1 Month Ago ~05/27/17 Hydrochlorothiazide [HCTZ] 25 mg PO DAILY 06/26/17 06/26/17 06/25/17 Potassium Citrate [Potassium 15 meq PO DAILY 06/26/17 06/26/17 06/25/17 Citrate ER] Previous Rx's Medication Instructions Recorded Last Taken Type Levofloxacin [Levaquin TAB] 750 mg PO QDAY 7 Days #7 tablet 06/26/17 Unknown Rx Allergies Allergy/AdvReac Type Severity Reaction Status Date / Time ciprofloxacin [From Cipro] Allergy Intermediate Itching Verified 09/09/13 09:51 ciprofloxacin HCl Allergy Intermediate Itching Verified 09/09/13 09:51 [From Cipro] Penicillins Allergy Intermediate Hives Verified 09/09/13 09:23 SEAFOOD Allergy Mild Vomiting Uncoded 09/09/13 09:23 ED Review of Systems ROS: Stated complaint: REPLACE KIDNEY TUBE Other details as noted in HPI Constitutional: denies: chills, fever Eyes: denies: eye pain, eye discharge, vision change ENT: denies: ear pain, throat pain Respiratory: denies: cough, shortness of breath, wheezing Cardiovascular: denies: chest pain, palpitations Endocrine: no symptoms reported Gastrointestinal: denies: abdominal pain, nausea, diarrhea Genitourinary: as per HPI. denies: urgency, dysuria Musculoskeletal: denies: back pain, joint swelling, arthralgia Skin: denies: rash, lesions Neurological: denies: headache, weakness, paresthesias Psychiatric: denies: anxiety, depression Hematological/Lymphatic: denies: easy bleeding, easy bruising ED Past Medical Hx - Past Medical History Hx Hypertension: Yes (OFF MEDS X 2 YRS) Hx Heart Attack/AMI: No (left bundle branch block on ECG) Hx Pulmonary Embolism: Yes Hx GERD: Yes Hx Renal Disease: Yes (Kidney Stones; last visit 11/15/13) Hx Seizures: No Hx Kidney Stones: Yes (HAS NEPHROSTOMY TUBE) - Surgical History Additional Surgical History: bilateral kidney stent - Social History Smoking Status: Current Some Day Smoker Substance Use Type: None - Medications Home Medications: Home Medications Medication Instructions Recorded Confirmed Last Taken Type Aspirin [Adult Low Dose Aspirin EC] 81 mg PO DAILY 10/15/16 06/26/17 1 Month Ago History ~05/27/17 Hydrochlorothiazide [HCTZ] 25 mg PO DAILY 06/26/17 06/26/17 06/25/17 History Levofloxacin [Levaquin TAB] 750 mg PO QDAY 7 Days #7 tablet 06/26/17 Unknown Rx Potassium Citrate [Potassium 15 meq PO DAILY 06/26/17 06/26/17 06/25/17 History Citrate ER] ED Physical Exam - General Limitations: No Limitations General appearance: alert, in no apparent distress - Head Head exam: Present: atraumatic, normocephalic - Eye Eye exam: Present: normal appearance. Absent: scleral icterus - ENT ENT exam: Present: mucous membranes moist - Neck Neck exam: Present: normal inspection - Respiratory Respiratory exam: Present: normal lung sounds bilaterally. Absent: respiratory distress - Cardiovascular Cardiovascular Exam: Present: regular rate, normal rhythm. Absent: systolic murmur, diastolic murmur, rubs, gallop - GI/Abdominal GI/Abdominal exam: Present: soft, normal bowel sounds, other (nephrostomy tube site is clean. There is urine on gauze noted). Absent: distended, tenderness, guarding, rebound, rigid - Rectal Rectal exam: Present: deferred - Extremities Exam Extremities exam: Present: normal inspection - Back Exam Back exam: Present: normal inspection - Neurological Exam Neurological exam: Present: alert, oriented X3, CN II-XII intact. Absent: motor sensory deficit - Psychiatric Psychiatric exam: Present: normal affect, normal mood - Skin Skin exam: Present: warm, dry, intact, normal color. Absent: rash ED Course Vital Signs 06/28/17 06/28/17 06/28/17 08:10 08:30 08:35 Temperature 98.3 F 98.4 F Pulse Rate 75 74 Respiratory 20 17 18 Rate Blood Pressure 132/89 Blood Pressure [Left] Blood Pressure 111/74 [Right] O2 Sat by Pulse 96 98 97 Oximetry 06/28/17 06/28/17 10:30 11:55 Temperature Pulse Rate 64 65 Respiratory 15 16 Rate Blood Pressure Blood Pressure 109/72 [Left] Blood Pressure 148/88 [Right] O2 Sat by Pulse 98 98 Oximetry - Reevaluation(s) Reevaluation #1: The patient had his nephrostomy tube changed to a larger catheter by Dr. Padgett. He is discharged by Dr. Padgett in stable condition after his procedure. 06/28/17 12:31 ED Medical Decision Making - Lab Data Result diagrams: 06/28/17 09:05 06/28/17 09:09 Laboratory Results - last 24 hr 06/28/17 06/28/17 06/28/17 09:05 09:09 09:09 WBC 8.7 RBC 5.26 H Hgb 17.4 H Hct 50.3 H MCV 96 H MCH 33 H MCHC 35 H RDW 13.7 Plt Count 130 L Lymph % (Auto) 19.4 [place] % (Auto) 8.5 H Eos % (Auto) 1.6 Baso % (Auto) 0.4 Lymph # 1.7 [place] # 0.7 Eos # 0.1 Baso # 0.0 Seg Neutrophils % 70.1 H Seg Neutrophils # 6.1 PT 13.6 INR 0.99 APTT 24.4 Sodium 140 Potassium 4.2 Chloride 103.2 Carbon Dioxide 23 Anion Gap 19 BUN 18 Creatinine 0.8 Estimated GFR > 60 BUN/Creatinine Ratio 23 Glucose 105 H Calcium 8.6 Urine Color Urine Turbidity Urine pH Ur Specific [place] Urine Protein Urine Glucose (UA) Urine Ketones Urine Blood Urine Nitrite Urine Bilirubin Urine Urobilinogen Ur Leukocyte Esterase Urine WBC (Auto) Urine RBC (Auto) 06/28/17 09:45 WBC RBC Hgb Hct MCV MCH MCHC RDW Plt Count Lymph % (Auto) [place] % (Auto) Eos % (Auto) Baso % (Auto) Lymph # [place] # Eos # Baso # Seg Neutrophils % Seg Neutrophils # PT INR APTT Sodium Potassium Chloride Carbon Dioxide Anion Gap BUN Creatinine Estimated GFR BUN/Creatinine Ratio Glucose Calcium Urine Color Yellow Urine Turbidity Slightly-cloudy Urine pH 7.0 Ur Specific [place] 1.020 Urine Protein 100 mg/dl Urine Glucose (UA) Neg Urine Ketones 20 Urine Blood Lg Urine Nitrite Neg Urine Bilirubin Neg Urine Urobilinogen < 2.0 Ur Leukocyte Esterase Lg Urine WBC (Auto) 6.0 Urine RBC (Auto) 3.0 Critical care attestation.: If time is entered above; I have spent that time in minutes in the direct care of this critically ill patient, excluding procedure time. ED Disposition Clinical Impression: Nephrostomy complication Disposition: [id number] TO HOME OR SELFCARE Is pt being admited?: No Does the pt Need Aspirin: No Condition: Stable Instructions: Nephrostomy Tube Care (ED) Additional Instructions: Further care and follow-up per Dr. Padgett and urologists Referrals: MORGAN GORDON MD [Primary Care Provider] - 3-5 Days usual, urologist [Other] - 3-5 Days Time of Disposition: 12:33
[2017-06-28 12:50] VITALS: BP 121/71
== END 2017-06-28 12:56 | disposition home or self-care (01) ==
LOC: ED 08:04
DX: N99.528 Other complication of incontinent external stoma of urinary tract (principal); I10 Essential (primary) hypertension; I26.99 Other pulmonary embolism without acute cor pulmonale; K21.9 Gastro-esophageal reflux disease without esophagitis; F17.200 Nicotine dependence, unspecified, uncomplicated; Z98.890 Other specified postprocedural states; Z79.82 Long term (current) use of aspirin; Z88.0 Allergy status to penicillin; Z88.1 Allergy status to other antibiotic agents; Z91.013 Allergy to seafood
CPT/HCPCS: 36415; 50435; 80048; 81001; 85025; 85610; 85730; 87086; 99283; C1729; C1751; C1769; J1956; J2250; J3010; J7050; Q9967

== ENCOUNTER 2017-07-02 16:15 | Inpatient (IN) | payer BC ==
--- NOTE | 2017-07-02 07:42 | Operative Report ---
Operative Report Operative Report: EXAM: NEPHROSTOGRAM, EXCHANGE OF NEPHROSTOMY TUBE TO NEPHROURETERAL STENT CLINICAL INDICATION: PATIENT WITH A HISTORY OF LEFT RENAL STONES, OR URETERAL STENT NEEDED PRIOR TO LASER LITHOTRIPSY DATE: 07/02/2017 PROCEDURE: Following an expiration of the risks, benefits and alternatives; written informed consent was obtained. The patient was brought to the angiographic suite and placed in prone position on the examination table. Initial fluoroscopic evaluation of his indwelling nephrostomy tube demonstrated appropriate positioning. Contrast was injected through the indwelling nephrostomy tube which demonstrated a decompressed renal collecting system. A large stone is seen within the renal collecting system. 1% lidocaine was used for anesthesia at the catheter exit site and along the tract to the kidney. The catheter was cut to release the pigtail and a 0.035 Glidewire was advanced through the nephrostomy tube and coiled within the renal pelvis. The remainder nephrostomy tube was removed intact. A 4 Iranian vertebral catheter was then advanced over the guidewire and together the guidewire and catheter manipulated into the ureter. Under fluoroscopy, the guidewire and catheter were advanced to the urinary bladder. The vertebral catheter was removed. A 5 [place] pigtail catheter was then advanced over the guidewire and placed within the bladder. Contrast was injected which demonstrated appropriate positioning of the distal pigtail within the bladder. There is reflux of contrast within the proximal and distal ureter. The catheter was securely fastened of the skin surface using 2-0 Ethilon suture and placed to dependent drainage. A sterile dressing was then applied. The patient tolerated the procedure well. There were no immediate post procedure complications. Conscious sedation was performed under the guidance of radiologic nursing. Continuous cardiopulmonary monitoring was utilized. IMPRESSION:#1) Nephrostogram demonstrating decompressed renal collecting system with a large stone. 2) Exchange of indwelling nephrostomy tube for a nephroureteral stent.
--- NOTE | 2017-07-02 11:30 | Anesthesia Consultation ---
Anesthesia Consult and Med Hx Date of service: 07/02/17 - Airway Anesthetic Teeth Evaluation: Good ROM Head & Neck: Adequate Mental/Hyoid Distance: Adequate Mallampati Class: Class II Intubation Access Assessment: Good - Pulmonary Exam CTA: Yes - Cardiac Exam Cardiac Exam: No Murmur - Pre-Operative Health Status ASA Pre-Surgery Classification: ASA2 Proposed Anesthetic Plan: General - Pulmonary Hx Smoking: Yes (1 PACK PER 2 WEEKS) Hx Respiratory Symptoms: No SOB: No (denies) Hx Pneumonia: Yes Hx Sleep Apnea: No (HARISH PRE SCREEN HIGH RISK) - Cardiovascular System Hx Hypertension: Yes (OFF MEDS X 2 YRS) Hx Coronary Artery Disease: No (patient says "blood clot to heart and lungs" 15 yrs ago; no problems since) Hx Heart Attack/AMI: No (left bundle branch block on ECG) Hx Angina: No (denies) Hx Cardia Arrhythmia: No Hx Peripheral Vascular Disease: Yes (DVT with PE in 2001) - Central Nervous System Hx Neuromuscular Disorder: No Hx Seizures: No CVA: No Hx Back Pain: No Hx Psychiatric Problems: Yes (Depression/anxiety) - Gastrointestinal Hx Gastroesophageal Reflux Disease: Yes - Endocrine Hx Renal Disease: Yes (Kidney Stones; last visit 11/15/13) Hx Insulin Dependent Diabetes: No Hx Non-Insulin Dependent Diabetes: No Hx Thyroid Disease: No - Other Systems Hx Alcohol Use: Yes (2-3 BEERS PER DAY) Hx Substance Use: No Hx Cancer: No Hx Obesity: No
--- NOTE | 2017-07-02 11:31 | Anesthesia Day of Surgery ---
Anesthesia Day of Surgery - Day of Surgery Patient Examined: Yes Patient H&P Reviewed: Yes Patient is NPO: Yes
--- NOTE | 2017-07-02 14:39 | Post Operative Note ---
Date of procedure: 07/02/17 Pre-op diagnosis: left renal stone Post-op diagnosis: same Findings: huge stone Procedure: left perc nephrolithotomy Anesthesia: GETA Surgeon: MIKIE QUINONEZ Estimated blood loss: 50-100ml Pathology: list (stones) Specimen disposition: given to patient/family Condition: stable Disposition: PACU
[2017-07-02 15:26] LABS: Basophils % (Auto) 0.4 % (0.0-1.8); Eosinophils # (Auto) 0.1 K/mm3 (0.0-0.4); Eosinophils % (Auto) 2.1 % (0.0-4.3); Hematocrit 49.4 % (35.5-45.6); Hemoglobin 16.7 gm/dl (11.8-15.2); Lymphocytes # (Auto) 1.8 K/mm3 (1.2-5.4); Lymphocytes % (Auto) 25.1 % (13.4-35.0); Mean Corpuscular HGB Conc 34 % (32-34); Mean Corpuscular Hemoglobin 33 pg (28-32); Mean Corpuscular Volume 98 fl (84-94); Monocytes # (Auto) 0.5 K/mm3 (0.0-0.8); Monocytes % (Auto) 7.5 % (0.0-7.3); Platelet Count 128 K/mm3 (140-440); Red Blood Count 5.02 M/mm3 (3.65-5.03); Red Cell Distribution Width 14.4 % (13.2-15.2)
[2017-07-02 15:38] LABS: BUN/Creatinine Ratio 13; Blood Urea Nitrogen 12 mg/dL (9-20); Calcium 8.2 mg/dL (8.4-10.2); Hemolysis Index 11
--- NOTE | 2017-07-02 15:43 | Post Anesthesia Evaluation ---
- Post Anesthesia Evaluation Patient Participated: Yes Airway Patent: Yes Stable Respiratory Function: Yes Nausea/Vomiting: No Temp > 96.8F: Yes Pain Manageable: Yes Adequeate Hydration: Yes Anesthesia Complications: No Block Receding Appropriately: Not Applicable Patient on Ventilator: No
[~2017-07-02 16:15] MED LIST changes: +D5W/0.45% NACL/KCL 20 MEQ 20 MEQ/1,000 ML BAG IV SCH; +DILAUDID ONE; +DIPRIVAN 10 MG/ML IV ONE; +LACTATED RINGERS 1,000 ML IV SCH; +LACTATED RINGERS 1,000 ML ONE; +LASIX ONE; +LEVAQUIN 500MG/100ML 500 MG/100 ML BAG IV ONE; +MINERAL OIL TOPICAL LIGHT TP ONE; +MORPHINE IV PRN; +NACL 0.9% 500 ML 500 ML IV ONE; +NACL 0.9% 500 ML IR ONE; +NACL 0.9% IR ONE; +NARCAN 0.4 MG/1 ML IV PRN; +NEOSTIGMINE ONE; +NORCO 5/325 PO PRN; +PEPCID PO NR; +PROAIR IH ONE; +ROBINUL ONE; +SODIUM CHLORIDE FLUSH SYRINGE 10 ML IV NR; +SUBLIMAZE IV ONE; +SUBLIMAZE ONE; +TORADOL ONE; +TYLENOL PO PRN; -VANCOMYCIN/NS 1 GM/250 ML 1 GM/250 ML BAG IV NR; +VERSED IV NR; +VERSED IV ONE; +VERSED ONE; +XYLOCAINE 2% INFILTRATI ONE; +XYLOCAINE MPF 2% ONE; +ZEMURON IV ONE; +ZOFRAN IV PRN; +ZOFRAN ONE
--- NOTE | 2017-07-02 21:15 | Operative Report ---
PREOPERATIVE DIAGNOSIS: A very large approximately 3 cm stone, left kidney, previously right kidney stone. POSTOPERATIVE DIAGNOSIS: A very large approximately 3 cm stone, left kidney, previously right kidney stone. PROCEDURE: Left percutaneous nephrolithotomy. SURGEON: Cash Alegria MD ANESTHESIA: General. FINDINGS: This is a gentleman with a large stone obstructing intermittently the left side with pain, now presents for treatment. All risks and complications were discussed with him and his . DESCRIPTION OF PROCEDURE: The patient was brought to the operating room and placed on the operating table. Following induction of anesthesia, a Villavicencio catheter was placed. He was placed in the prone position, prepped and draped in usual sterile fashion. Using the nephroureteral stent, Amplatz Super Stiff wire was placed in the bladder under fluoroscopic guidance. Using the Amplatz sheath, the safety wire was placed. Once this was secured with silk, we used the Amplatz to dilate. We were going to use a balloon, but we were unsure whether we had a fully dilated but with the size once we were up to 18, it was going quite easily, we decided to use the Amplatz. We placed a 28 sheath after the dilation was to 30 without difficulty. There were a few clots and the stone was occupying most of the renal pelvis. We used the LithoClast and ultrasound to fragment it up and then once we started getting some pieces out, we had more room to work. The patient tolerated the procedure well. All the visible stone was evacuated. Flexible nephroscopy was carried out. There were no significant stones. UPJ looked perfect. A safety wire was secured and left in place and we placed a 22 [place], secured it to the skin. The patient tolerated the procedure well. Minimal blood loss. He was brought to recovery in stable condition. Family was given the large amount of stone. JOB# [id number] RITCHIE/JOSEFINA
[2017-07-03 04:58] LABS: Basophils % (Auto) 0.3 % (0.0-1.8); Eosinophils # (Auto) 0.2 K/mm3 (0.0-0.4); Eosinophils % (Auto) 1.7 % (0.0-4.3); Hemoglobin 15.4 gm/dl (11.8-15.2); Lymphocytes # (Auto) 1.4 K/mm3 (1.2-5.4); Lymphocytes % (Auto) 15.7 % (13.4-35.0); Mean Corpuscular HGB Conc 34 % (32-34); Mean Corpuscular Hemoglobin 32 pg (28-32); Mean Corpuscular Volume 96 fl (84-94); Monocytes # (Auto) 0.8 K/mm3 (0.0-0.8); Monocytes % (Auto) 8.3 % (0.0-7.3); Platelet Count 145 K/mm3 (140-440); Red Cell Distribution Width 13.8 % (13.2-15.2)
--- NOTE | 2017-07-03 09:27 | Fluoroscopy Report ---
FLUOROSCOPY NEPHROSTOGRAM EXISTING LEFT History: Left kidney stone, percutaneous nephrolithotomy. Findings: Fluoroscopy was provided by radiology during left nephrostogram by urology. 6 fluoroscopic images were captured. Only the left renal pelvis and right left calyces are opacified with contrast which are grossly normal. The left ureter is not opacified. Please correlate with the procedural report by Dr. Alegria. Impression: Successful left nephrostogram/percutaneous nephrolithotomy.
[2017-07-03] MEDS ORDERED: LEVAQUIN PO SCH (10:00)
--- NOTE | 2017-07-03 12:44 | Discharge Summary ---
Short Stay Discharge Plan Activity: other (no straining ) Weight Bearing Status: Full Weight Bearing Diet: low cholesterol, low salt Wound: other (neospoin bid .. dressing change daily ) Durable Medical Equipment Needed Upon Discharge: other (neph tube care ) Follow up with: MORGAN GORDON MD [Primary Care Provider] - 7 Days MIKIE QUINONEZ MD [Staff Physician] - 7 Days
--- NOTE | 2017-07-03 12:45 | Progress Note ---
Assessment and Plan wire out tube plugged instructions given looks great Subjective Date of service: 07/03/17 Principal diagnosis: left stone Objective - Constitutional Vitals: Vital Signs - 12hr 07/03/17 11:46 O2 Sat by Pulse 95 Oximetry General appearance: Present: no acute distress - Neck Neck: supple - Respiratory Respiratory effort: normal - Gastrointestinal General gastrointestinal: Present: soft, non-tender - Labs CBC & Chem 7: 07/03/17 04:37 07/02/17 15:20 Labs: Abnormal lab results 07/02/17 07/02/17 07/03/17 Range/Units 15:20 15:20 04:37 Hgb 16.7 H 15.4 H (11.8-15.2) gm/dl Hct 49.4 H 46.0 H (35.5-45.6) % MCV 98 H 96 H (84-94) fl MCH 33 H (28-32) pg Plt Count 128 L (140-440) K/mm3 [place] % (Auto) 7.5 H 8.3 H (0.0-7.3) % Seg Neutrophils % 74.0 H (40.0-70.0) % Glucose 113 H (75-100) mg/dL Calcium 8.2 L (8.4-10.2) mg/dL
[2017-07-03 12:57] VITALS: BP 121/66
== END 2017-07-03 13:30 | disposition home or self-care (01) | DRG 661 ==
LOC: OR 16:15 → 3A 16:16 → UNDOADMIN 16:16 → 3B-SURG 16:16 → UNDODISIN 07-03 13:30 → OR 07-03 13:30
PROVIDERS: ADMIT Urology; ATTEND Urology
PROC: 0TC13ZZ Extirpation of Matter from Left Kidney, Percutaneous Approach (ICD-10-PCS; principal; 2017-07-02)
PROC: BT121ZZ Fluoroscopy of Left Kidney using Low Osmolar Contrast (ICD-10-PCS; 2017-07-02)
PROC: 0T25X0Z Change Drainage Device in Kidney, External Approach (ICD-10-PCS; 2017-07-02)
DX: N20.0 Calculus of kidney (principal); I10 Essential (primary) hypertension; I73.9 Peripheral vascular disease, unspecified; F41.9 Anxiety disorder, unspecified; F32.9 Major depressive disorder, single episode, unspecified; K21.9 Gastro-esophageal reflux disease without esophagitis; F17.200 Nicotine dependence, unspecified, uncomplicated; Z87.01 Personal history of pneumonia (recurrent); Z88.0 Allergy status to penicillin; Z86.718 Personal history of other venous thrombosis and embolism; Z86.711 Personal history of pulmonary embolism; Z72.89 Other problems related to lifestyle
CPT/HCPCS: 36415; 50435; 80048; 85025; 86850; 86900; 86901; 86920; A4217; C1751; C1769; C1894; J1170; J1885; J1940; J2250; J2270; J2405; J2704; J2710; J3010; J7120; Q9967

== ENCOUNTER 2017-07-14 09:04 | Day surgery (SDC) | payer BC ==
[2017-07-14] MEDS ORDERED: LEVAQUIN 500MG/100ML 500 MG/100 ML BAG IV NR (10:15)
--- NOTE | 2017-07-14 10:29 | Anesthesia Day of Surgery ---
Anesthesia Day of Surgery - Day of Surgery Patient Examined: Yes Patient H&P Reviewed: Yes Patient is NPO: Yes
--- NOTE | 2017-07-14 10:29 | Anesthesia Consultation ---
Anesthesia Consult and Med Hx Date of service: 07/14/17 - Airway Anesthetic Teeth Evaluation: Good ROM Head & Neck: Adequate Mental/Hyoid Distance: Adequate Mallampati Class: Class II Intubation Access Assessment: Good - Pulmonary Exam CTA: Yes - Cardiac Exam Cardiac Exam: No Murmur - Pre-Operative Health Status ASA Pre-Surgery Classification: ASA2 Proposed Anesthetic Plan: General - Pulmonary Hx Smoking: Yes (1 PACK PER 2 WEEKS) Hx Asthma: No Hx Respiratory Symptoms: No SOB: No (denies) COPD: No Hx Pneumonia: Yes Hx Sleep Apnea: No (HARISH PRE SCREEN HIGH RISK) - Cardiovascular System Hx Hypertension: Yes (OFF MEDS X 2 YRS) Hx Coronary Artery Disease: No (patient says "blood clot to heart and lungs" 15 yrs ago; no problems since) Hx Heart Attack/AMI: No (left bundle branch block on ECG) Hx Angina: No (denies) Hx Cardia Arrhythmia: No Hx Peripheral Vascular Disease: Yes (DVT with PE in 2001) - Central Nervous System Hx Neuromuscular Disorder: No Hx Seizures: No CVA: No Hx Back Pain: No Hx Psychiatric Problems: Yes (Depression/anxiety) - Gastrointestinal Hx Gastroesophageal Reflux Disease: Yes - Endocrine Hx End Stage Renal Disease: No Hx Insulin Dependent Diabetes: No Hx Non-Insulin Dependent Diabetes: No Hx Thyroid Disease: No - Other Systems Hx Alcohol Use: Yes (2-3 BEERS PER DAY) Hx Substance Use: No Hx Cancer: No Hx Obesity: No
[2017-07-14] MEDS ORDERED: PEPCID IV NR (11:00)
[2017-07-14] MEDS ORDERED: LACTATED RINGERS 1,000 ML IV SCH (11:10)
[2017-07-14] MEDS ORDERED: VERSED IV NR (11:30)
[2017-07-14] MEDS ORDERED: DIPRIVAN 10 MG/ML IV ONE (11:51)
[2017-07-14] MEDS ORDERED: SUBLIMAZE ONE ×2 (11:51→12:05)
[2017-07-14] MEDS ORDERED: ZEMURON IV ONE ×2 (11:53)
--- NOTE | 2017-07-14 12:23 | Post Operative Note ---
Date of procedure: 07/14/17 Pre-op diagnosis: l renal stones Post-op diagnosis: same Findings: as above Procedure: staged 2 nd look L perc nephrolithotomy Anesthesia: GETA Surgeon: MIKIE QUINONEZ Estimated blood loss: minimal Pathology: list (stones) Specimen disposition: given to patient/family Condition: stable Disposition: PACU
--- NOTE | 2017-07-14 12:24 | Discharge Summary ---
Short Stay Discharge Plan Activity: other (no straining ) Weight Bearing Status: Full Weight Bearing Diet: regular, low fat, low cholesterol, low salt Wound: open to air Special Instructions: other (remove dressing in 2 days ) Durable Medical Equipment Needed Upon Discharge: other (has j stent ) Follow up with: MORGAN GORDON MD [Primary Care Provider] - 7 Days MIKIE QUINONEZ MD [Staff Physician] - 7 Days
[2017-07-14] MEDS ORDERED: MINERAL OIL TOPICAL LIGHT TP ONE ×2 (12:34→13:30)
[2017-07-14] MEDS ORDERED: NEOSTIGMINE ONE (12:53)
[2017-07-14] MEDS ORDERED: XYLOCAINE MPF 2% ONE (12:53)
[2017-07-14] MEDS ORDERED: ROBINUL ONE (12:53)
[2017-07-14] MEDS ORDERED: NACL 0.9% IR ONE (13:30)
--- NOTE | 2017-07-14 14:23 | Post Anesthesia Evaluation ---
- Post Anesthesia Evaluation Patient Participated: Yes Airway Patent: Yes Stable Respiratory Function: Yes Nausea/Vomiting: No Temp > 96.8F: Yes Pain Manageable: Yes Adequeate Hydration: Yes Anesthesia Complications: No
--- NOTE | 2017-07-14 16:18 | Fluoroscopy Report ---
Operative left nephrostogram: Left ureteral calculus. A wire and laser were introduced through a left nephrostomy with the wire extending down the ureter. Calcification is identified at the proximal ureter/UV junction region. Subsequent images demonstrate passage of the laser distally into the mid to lower ureter. A nephrostogram followup showed no obstruction or remaining calculus in the proximal ureter. An internal stent was left in place.
[2017-07-14 16:44] VITALS: BP 136/79
--- NOTE | 2017-07-14 19:15 | Operative Report ---
PREOPERATIVE DIAGNOSIS: Second stage large stones, upper ureter. POSTOPERATIVE DIAGNOSIS: Second stage large stones, upper ureter. PROCEDURE: Stage second look percutaneous nephrolithotomy. SURGEON: Cash Alegria M.D. ANESTHESIA: General. FINDINGS: This is a gentleman with large stone burden who has stones that were in the lower pole that dropped to the upper ureter. He now presents for second stage percutaneous nephrolithotomy. DESCRIPTION OF PROCEDURE: The patient was brought to the operating room and placed on the operating table. Following the induction of anesthesia, placed in the prone position, after Villavicencio catheter was placed, prepped and draped in usual sterile fashion. Through the nephrostomy tract, a wire coiled in the bladder under direct vision with flexible cystoscope. It was very tight around the larger stone, which was about 8-9 mm. Once we got access, we used the flexible ureteroscope and lasered the stone and followed all the fragments down to the lower ureter, a large number of fragments at least 20-30 fragments, we did not try to retrieve them, we did not want to damage the ureter. A 7-Burundian double J coiled in the bladder and in the kidney. We took out the nephrostomy tube. Dressing was applied. The patient tolerated the procedure well. Family notified. No significant bleeding. Brought to recovery in stable condition. JOB# [id number] RITCHIE/JOSEFINA
== END 2017-07-14 16:12 | disposition home or self-care (01) ==
LOC: OR 09:04
PROVIDERS: ATTEND Urology
DX: N20.1 Calculus of ureter (principal); I10 Essential (primary) hypertension; I73.9 Peripheral vascular disease, unspecified; F41.9 Anxiety disorder, unspecified; F32.9 Major depressive disorder, single episode, unspecified; F17.210 Nicotine dependence, cigarettes, uncomplicated; Z88.0 Allergy status to penicillin; Z88.1 Allergy status to other antibiotic agents; Z86.718 Personal history of other venous thrombosis and embolism; Z79.01 Long term (current) use of anticoagulants
CPT/HCPCS: 36415; 52356; 84132; A4217; C1769; C2617; J1956; J2704; J2710; J3010; J7120; Q9967; J2250

== ENCOUNTER 2017-07-28 08:58 | Day surgery (SDC) | payer BC ==
[~2017-07-28 08:58] MED LIST changes: -D5W/0.45% NACL/KCL 20 MEQ 20 MEQ/1,000 ML BAG IV SCH; -DILAUDID ONE; -DIPRIVAN 10 MG/ML IV ONE; -LACTATED RINGERS 1,000 ML IV SCH; -LACTATED RINGERS 1,000 ML ONE; -LASIX ONE; -LEVAQUIN 500MG/100ML 500 MG/100 ML BAG IV ONE; -MINERAL OIL TOPICAL LIGHT TP ONE; -MORPHINE IV PRN; -NACL 0.9% 1000 ML 1,000 ML IV SCH; -NACL 0.9% 500 ML 500 ML IV ONE; -NACL 0.9% 500 ML IR ONE; -NACL 0.9% IR ONE; -NARCAN 0.4 MG/1 ML IV PRN; -NEOSTIGMINE ONE; -NORCO 5/325 PO PRN; -PEPCID PO NR; -PROAIR IH ONE; -ROBINUL ONE; -SODIUM CHLORIDE FLUSH SYRINGE 10 ML IV NR; -SUBLIMAZE IV ONE; -SUBLIMAZE ONE; -TORADOL ONE; -TYLENOL PO PRN; +VANCOMYCIN/NS 1 GM/250 ML 1 GM/250 ML BAG IV NR; -VERSED IV NR; -VERSED IV ONE; -VERSED ONE; -XYLOCAINE 2% INFILTRATI ONE; -XYLOCAINE MPF 2% ONE; -ZEMURON IV ONE; -ZOFRAN IV PRN; -ZOFRAN ONE
--- NOTE | 2017-07-28 09:57 | Anesthesia Day of Surgery ---
Anesthesia Day of Surgery - Day of Surgery Patient Examined: Yes Patient H&P Reviewed: Yes Patient is NPO: Yes Lacho's Test: N/A
--- NOTE | 2017-07-28 09:57 | Anesthesia Consultation ---
Anesthesia Consult and Med Hx Date of service: 07/28/17 - Airway Anesthetic Teeth Evaluation: Good ROM Head & Neck: Adequate Mental/Hyoid Distance: Adequate Mallampati Class: Class II Intubation Access Assessment: Probably Good - Pulmonary Exam CTA: Yes - Cardiac Exam Cardiac Exam: RRR - Pre-Operative Health Status ASA Pre-Surgery Classification: ASA3 Proposed Anesthetic Plan: General - Pulmonary Hx Smoking: Yes (1 PACK PER 2 WEEKS) Hx Asthma: No Hx Respiratory Symptoms: No SOB: No (denies) COPD: No Hx Pneumonia: Yes Hx Sleep Apnea: No (HARISH PRE SCREEN HIGH RISK) - Cardiovascular System Hx Hypertension: Yes (OFF MEDS X 2 YRS) Hx Coronary Artery Disease: No (patient says "blood clot to heart and lungs" 15 yrs ago; no problems since) Hx Heart Attack/AMI: No (left bundle branch block on ECG) Hx Angina: No (denies) Hx Cardia Arrhythmia: No - Central Nervous System Hx Neuromuscular Disorder: No Hx Seizures: No CVA: No Hx Back Pain: No Hx Psychiatric Problems: Yes (Depression/anxiety) - Gastrointestinal Hx Gastroesophageal Reflux Disease: Yes - Endocrine Hx End Stage Renal Disease: No Hx Insulin Dependent Diabetes: No Hx Non-Insulin Dependent Diabetes: No Hx Thyroid Disease: No - Other Systems Hx Alcohol Use: Yes (2-3 BEERS PER DAY) Hx Substance Use: No Hx Cancer: No Hx Obesity: Yes - Additional Comments Anesthesia Medical History Comments: Has underwent GETA recently with no complications.
[2017-07-28] MEDS ORDERED: VANCOMYCIN/NS 1 GM/250 ML 1 GM/250 ML BAG IV SCH (10:00)
[2017-07-28] MEDS ORDERED: NACL 0.9% 1000 ML 1,000 ML IV SCH (10:25)
[2017-07-28] MEDS ORDERED: PEPCID IV NR (10:25)
[2017-07-28] MEDS ORDERED: SUBLIMAZE ONE (11:13)
[2017-07-28] MEDS ORDERED: DIPRIVAN 10 MG/ML IV ONE ×2 (11:13→11:37)
[2017-07-28] MEDS ORDERED: XYLOCAINE MPF 2% ONE (11:16)
[2017-07-28] MEDS ORDERED: ZOFRAN ONE (11:51)
[2017-07-28] MEDS ORDERED: WATER FOR IRRIG STERILE IR ONE (12:00)
--- NOTE | 2017-07-28 12:34 | Post Operative Note ---
Date of procedure: 07/28/17 Pre-op diagnosis: left ureteral stones stent Post-op diagnosis: same Findings: as above Procedure: cysto l ureteroscopy stent change Anesthesia: GETA Surgeon: MIKIE QUINONEZ Estimated blood loss: minimal Pathology: none Specimen disposition: discarded Condition: stable Disposition: PACU
--- NOTE | 2017-07-28 12:35 | Discharge Summary ---
Short Stay Discharge Plan Activity: other (no straining ) Weight Bearing Status: Full Weight Bearing Diet: low fat, low cholesterol, low salt Special Instructions: other (inc fluids ) Durable Medical Equipment Needed Upon Discharge: other (j stent ) Follow up with: MORGAN GORDON MD [Primary Care Provider] - 7 Days MIKIE QUINONEZ MD [Staff Physician] - 7 Days
[2017-07-28] MEDS ORDERED: ROBINUL ONE (13:00)
[2017-07-28] MEDS ORDERED: DECADRON ONE (13:00)
[2017-07-28 13:10] VITALS: BP 140/83
--- NOTE | 2017-07-28 13:55 | Operative Report ---
PREOPERATIVE DIAGNOSES: Retained left stent staged procedure with residual left ureteral stones. POSTOPERATIVE DIAGNOSES: Retained left stent staged procedure with residual left ureteral stones. PROCEDURE: Cystoscopy, stent exchange, left ureteroscopy with evacuation of distal stones. SURGEON: Cash Alegria MD ANESTHESIA: General. FINDINGS: This is a gentleman who had a huge stone in left kidney, has residual fragments and a stent which he refused in the office, now presents for exchange and ureteroscopy. DESCRIPTION OF PROCEDURE: The patient was brought to the operating room and placed on the operating table. Following induction of anesthesia, placed in lithotomy position, prepped and draped in usual sterile fashion. The stent was removed under fluoroscopic guidance. We tried getting a wire through it, but it was encrusted, wire would not go easily. At this point, cystoscopy showed the orifice and we reinserted a new wire and ureteroscopy showed gravel and small stone in the distal ureter, which were taken out with a grasper. The patient tolerated the procedure well. We went up to the junction of the lower and mid ureter. No more significant stones were seen. A double-J 6-Kazakh 26 cm was coiled in the kidney and came out the orifice. We left the string. He was brought to recovery in stable condition. JOB# [id number] RITCHIE/JOSEFINA
--- NOTE | 2017-07-28 14:03 | XRay Report ---
SUPINE KUB: History: Left ureteral and kidney stones. 5 fluoroscopic images were captured by Dr. Alegria of urology during left ureteral stent exchange. The left ureteral stent is in good position on the final image. Please correlate with the procedural report by Dr. Alegria if needed. IMPRESSION: Left ureteral stent exchange.
== END 2017-07-28 13:45 | disposition home or self-care (01) ==
LOC: OR 08:58
PROVIDERS: ATTEND Urology
DX: N20.2 Calculus of kidney with calculus of ureter (principal); I10 Essential (primary) hypertension; I44.7 Left bundle-branch block, unspecified; E66.9 Obesity, unspecified; F41.9 Anxiety disorder, unspecified; F32.9 Major depressive disorder, single episode, unspecified; F17.210 Nicotine dependence, cigarettes, uncomplicated; Z68.32 Body mass index [BMI] 32.0-32.9, adult; Z79.899 Other long term (current) drug therapy; Z88.0 Allergy status to penicillin; Z88.1 Allergy status to other antibiotic agents; Z91.013 Allergy to seafood
CPT/HCPCS: 52332; 52352; 74018; A4217; C1758; C1769; C2617; J1100; J2405; J2704; J3010; J3370; J7030; Q9967

== ENCOUNTER 2021-08-24 10:04 | Outpatient (CLI) | payer BC, MEDICARE ==
--- NOTE | 2021-08-24 11:42 | Cat Scan Report ---
CT ABDOMEN AND PELVIS WITHOUT CONTRAST INDICATION / CLINICAL INFORMATION: CALCULUS OF KIDNEY. TECHNIQUE: Axial CT images were obtained through the abdomen and pelvis without IV contrast. Sagittal and rich l reformatted images. All CT scans at this location are performed using CT dose reduction for ALARA b y means of automated exposure control. COMPARISON: 06/26/2017 FINDINGS: LOWER CHEST: No significant abnormality. Minor subpleural scarring at the right lung base posteriorly is noted. LIVER: No significant abnormality. GALLBLADDER: A few tiny calcified gallstones are identified in the gallbladder fundus. No wall thicke doreen or abnormal dilatation. BILE DUCTS: No significant abnormality. PANCREAS: No significant abnormality. SPLEEN: No significant abnormality. ADRENALS: No significant abnormality. RIGHT KIDNEY and URETER: A 2 mm calyceal stone is identified near the lower pole. The right kidney an d collecting system are otherwise unremarkable. This appears unchanged since 2017. LEFT KIDNEY and URETER: There are 3 calyceal stones in the inferior left kidney. A 1.1 cm stone near mid pole is significantly decreased in size since the previous exam where it measured up to 3.3 cm. T here are 2 stones at the lower pole measuring 0.8 cm and 1.3 cm which are largely unchanged. No focal renal lesion or hydronephrosis. STOMACH and SMALL BOWEL: No significant abnormality. COLON: No significant abnormality. APPENDIX: No significant abnormality. PERITONEUM: No free fluid. No free air. No fluid collection. LYMPH NODES: No significant adenopathy. AORTA and ARTERIES: Mild atherosclerotic calcification without acute abnormality. IVC and VEINS: No significant abnormality. URINARY BLADDER: No significant abnormality. REPRODUCTIVE ORGANS: No significant abnormality. ADDITIONAL FINDINGS: None. SKELETAL SYSTEM: Mild thoracolumbar spondylosis. IMPRESSION: Nonobstructing bilateral nephrolithiasis as described. Nephrolithiasis in the left kidney appears dec reased since 06/26/2017. No ureteral stones or hydronephrosis. Cholelithiasis. Signer Name: Neo Santos Jr, MD Signed: 08/24/2021 11:37 AM Workstation Name: [id number]
== END 2021-08-24 10:05 | disposition home or self-care (01) ==
LOC: CT 10:04
PROVIDERS: ATTEND Urology
DX: N20.0 Calculus of kidney (principal); K80.20 Calculus of gallbladder without cholecystitis without obstruction; I70.0 Atherosclerosis of aorta; M47.815 Spondylosis without myelopathy or radiculopathy, thoracolumbar region
CPT/HCPCS: 74176